=== PATIENT | female | born 1985 | race Two or more races ===

== ENCOUNTER 2024-05-31 21:07 | Emergency (ER) | payer OTHER ==
[~2024-05-31] VITALS: Ht 167.6 cm; Wt 79.4 kg
[~2024-05-31 21:07] MED LIST: Inderal 20 mg T20 MG PO
[2024-05-31 22:04] LABS: Source, Urine Clean Catch
[2024-05-31 22:08] LABS: Bilirubin, Urine Neg (Neg); Blood, Urine 2+ (Neg); Glucose Qualitative, Urine Neg (Neg); Ketones, Urine 1+ (Neg); Leukocyte Esterase, Urine 1+ (Neg); Nitrite, Urine Neg (Neg); Protein, Urine 2+ (Neg); Urobilinogen, Urine 1+ (Normal)
[2024-05-31 22:14] LABS: Appearance, Urine Hazy (Clear); Color, Urine Yellow (P-Yellow)
[2024-05-31 22:16] LABS: Amorphous Light (0-Heavy); Bacteria Mod /hpf; Calcium Oxalate Crystals Few /hpf; Squamous Epithelial Cells Mod /hpf (Few)
[2024-05-31] MEDS ORDERED: Doxycycline Hyclate 100 MG TAB PO ONE (23:00)
[2024-05-31] MEDS ORDERED: Vibramycin100 MG PO (23:01)
[2024-06-01 02:16] LABS: Candida Group, PCR NOT DETECTED (NOT DETECT); Candida glabrata-krusei, PCR NOT DETECTED (NOT DETECT)
[2024-06-01 02:54] LABS: Bacterial Vaginosis PCR Positive (NEGATIVE)
[2024-06-01 04:24] LABS: Chlamydia Trachomatis Cervix NOT DETECTED (NOT DETECT); Neisseria Gonorrhoea Cervix NOT DETECTED (NOT DETECT)
[2024-06-20] MEDS ORDERED: Diflucan150 MG PO (15:35)
[2024-06-20] MEDS ORDERED: PANT20 PO (15:35)
== END 2024-05-31 23:10 | disposition home or self-care (01) ==
LOC: ER 21:07
PROVIDERS: Emergency Medicine
DX: T19.2XXA Foreign body in vulva and vagina, initial encounter (principal); W44.8XXA Other foreign body entering into or through a natural orifice, initial encounter; I10 Essential (primary) hypertension; E03.9 Hypothyroidism, unspecified; Z79.899 Other long term (current) drug therapy
CPT/HCPCS: 81001; 81025; 87086; 87147; 87481; 87491; 87591; 87661; 87801; 99283; A9270

== ENCOUNTER → 2024-08-20 | Outpatient (CLI) | payer OTHER ==
[~2024-08-20] MED LIST changes: +Diflucan150 MG PO; +PANT20 PO; +Vibramycin100 MG PO
[2024-08-20 17:01] LABS: Appearance, Urine Turbid (Clear); Bilirubin, Urine Neg (Neg); Blood, Urine 5+ (Neg); Color, Urine Yellow (P-Yellow); Glucose Qualitative, Urine Neg (Neg); Ketones, Urine Neg (Neg); Leukocyte Esterase, Urine Neg (Neg); Nitrite, Urine Neg (Neg); Protein, Urine 1+ (Neg); Urobilinogen, Urine NORM (Normal)
[2024-08-20 17:16] LABS: Red Blood Cells, Urine 0-2 /hpf (0-2); White Blood Cells, Urine 0-2 /hpf (0-5)
[2024-08-20 17:17] LABS: Amorphous Mod (0-Heavy); Bacteria Many /hpf; Calcium Oxalate Crystals Few /hpf; Mucus Light (0-Heavy); Squamous Epithelial Cells Few /hpf (Few)
[2024-08-22 16:03] LABS: HIV 1,2 COMBO ANTIGEN/ANTIBODY Negative (Negative)
[2024-08-23 18:45] LABS: APTIMA MEDIA TYPE Urine; C. TRACHOMATIS BY TMA Negative (Negative); N. GONORRHOEAE BY TMA Negative (Negative); SPECIMEN SOURCE Urine
[2024-08-24 22:07] LABS: HCV GENOTYPE BY SEQUENCING Indeterminate
== END | disposition home or self-care (01) ==
LOC: LAB SHORT 13:45 → LAB 13:45
PROVIDERS: Nurse Practitioner Family
DX: Z72.51 High risk heterosexual behavior (principal)
CPT/HCPCS: 81001; 86592; 87086; 87389; 87491; 87591; 87902

== ENCOUNTER → 2024-08-30 | Outpatient (CLI) | payer OTHER ==
[2024-08-30 15:52] LABS: Bacterial Vaginosis PCR Positive (NEGATIVE); Candida Group, PCR NOT DETECTED (NOT DETECT); Candida glabrata-krusei, PCR NOT DETECTED (NOT DETECT)
== END ==
LOC: LAB SHORT 10:43 → LAB 10:43
PROVIDERS: Nurse Practitioner Family
DX: Z72.51 High risk heterosexual behavior (principal)
CPT/HCPCS: 87481; 87661; 87801

== ENCOUNTER 2024-12-17 16:36 | Emergency (ER) | payer OTHER ==
[~2024-12-17] VITALS: Ht 167.6 cm; Wt 83.9 kg
[~2024-12-17 16:36] MED LIST changes: -ERYT.5TO BOTHEYES; -Mupirocin22 GM TOP
[2024-12-17 17:23] LABS: BASOPHILS ABSOLUTE AUTO 0.05 K/mm3 (0.00-0.23); BASOPHILS PERCENT AUTO 1 % (0-2); EOSINOPHILS ABSOLUTE AUTO 0.47 K/mm3 (0.00-0.68); EOSINOPHILS PERCENT AUTO 6 % (0-6); Hematocrit 41.1 % (33.0-51.0); Hemoglobin 13.4 g/dL (11.5-16.0); IMMATURE GRAN ABSOLUTE AUTO 0.04 K/mm3 (0.00-0.10); IMMATURE GRAN PERCENT AUTO 1 % (0-1); LYMPHOCYTES ABSOLUTE AUTO 2.51 K/mm3 (0.84-5.20); LYMPHOCYTES PERCENT AUTO 31 % (21-46); MONOCYTES ABSOLUTE AUTO 0.58 K/mm3 (0.16-1.47); MONOCYTES PERCENT AUTO 7 % (4-13); Mean Corpuscular HGB 26.1 pg (26.0-34.0); Mean Corpuscular HGB Conc 32.6 g/dL (31.5-36.5); Mean Corpuscular Volume 80 fL (80-100); Mean Platelet Volume 9.1 fL (9.1-12.4); NEUTROPHILS ABSOLUTE AUTO 4.52 K/mm3 (1.96-9.15); NEUTROPHILS PERCENT AUTO 55 % (41-73); Platelet Count 286 K/mm3 (150-400); RDW Coefficient Variation 12.9 % (11.7-14.2); RDW Standard Deviation 37.8 fL (35.1-46.3); Red Blood Cell Count 5.13 M/mm3 (3.80-5.20); White Blood Cell Count 8.17 K/mm3 (4.00-11.30)
[2024-12-17 17:51] LABS: Free Thyroxine 1.56 ng/dL (0.70-1.60)
[2024-12-17 17:54] LABS: Albumin, Blood 3.5 g/dL (3.4-5.0); Bilirubin, Total 0.5 mg/dL (0.1-1.0); Bun/Creatinine Ratio 21.5 (12.0-20.0); Calcium, Blood 8.6 mg/dL (8.5-10.1); Creatinine, Blood 0.65 mg/dL (0.40-1.00); Globulin, Blood 3.5 g/dL (2.2-4.0); Potassium, Blood 3.7 mmol/L (3.5-5.5); Thyroid Stimulating Hormone 0.027 uIU/mL (0.360-4.800)
[2024-12-17 20:53] LABS: Triiodothyronine, Free 3.88 pg/mL (2.18-3.98)
== END 2024-12-17 20:53 | disposition home or self-care (01) ==
LOC: ER 16:36
PROVIDERS: Physician Assistant
DX: E05.91 Thyrotoxicosis, unspecified with thyrotoxic crisis or storm (principal); I10 Essential (primary) hypertension; F17.200 Nicotine dependence, unspecified, uncomplicated
CPT/HCPCS: 80053; 84439; 84443; 84481; 85025; 99284

== ENCOUNTER → 2024-12-17 | Outpatient (CLI) | payer OTHER ==
[~2024-12-17] MED LIST changes: +ERYT.5TO BOTHEYES; +Mupirocin22 GM TOP
== END | disposition home or self-care (01) ==
LOC: LAB SHORT 18:38 → LAB 18:38
DX: R41.82 Altered mental status, unspecified (principal)
CPT/HCPCS: 84443

== ENCOUNTER 2024-12-31 14:21 | Emergency (ER) | payer OTHER ==
[~2024-12-31] VITALS: Ht 167.6 cm; Wt 85.3 kg
[2024-12-31] MEDS ORDERED: Tetracaine HCl/Pf 0.5% Opth Soln 4 ml RIGHTEYE ONE (14:45)
[2024-12-31] MEDS ORDERED: Mupirocin22 GM TOP (14:51)
[2024-12-31] MEDS ORDERED: ERYT.5TO BOTHEYES (14:51)
== END 2024-12-31 15:20 | disposition home or self-care (01) ==
LOC: ER 14:21
DX: H10.011 Acute follicular conjunctivitis, right eye (principal); I10 Essential (primary) hypertension; F17.200 Nicotine dependence, unspecified, uncomplicated; Z79.899 Other long term (current) drug therapy
CPT/HCPCS: 99283

== ENCOUNTER 2025-01-29 14:49 | Emergency (ER) | payer OTHER ==
[~2025-01-29] VITALS: Ht 167.6 cm; Wt 85.3 kg
[~2025-01-29 14:49] MED LIST changes: +ERYT.5TO BOTHEYES; +Mupirocin22 GM TOP
[2025-01-29 16:06] LABS: CORONAVIRUS COVID-19 AG Negative (NEGATIVE); INFLUENZA A AG Negative (NEGATIVE); INFLUENZA B AG Negative (NEGATIVE)
== END 2025-01-29 16:35 | disposition home or self-care (01) ==
LOC: ER 14:49
PROVIDERS: Student in an Organized Health Care Education/Training Program
DX: J06.9 Acute upper respiratory infection, unspecified (principal); I10 Essential (primary) hypertension; E03.9 Hypothyroidism, unspecified; F41.9 Anxiety disorder, unspecified; F17.200 Nicotine dependence, unspecified, uncomplicated; Z79.899 Other long term (current) drug therapy
CPT/HCPCS: 87428-QW; 99283

== ENCOUNTER 2025-03-29 06:39 | Emergency (ER) | payer OTHER | END 2025-03-29 07:21 | disposition left against medical advice (07) | LOC: ER 06:39 | DX: M25.511 Pain in right shoulder (principal); Z53.21 Procedure and treatment not carried out due to patient leaving prior to being seen by health care provider ==

== ENCOUNTER 2025-07-28 01:02 | Day surgery (SDC) | payer OTHER ==
[2025-07-28 09:53] VITALS: BP 132/79
[2025-07-28] MEDS ORDERED: METHI10 PO (10:08)
== END 2025-07-28 10:25 | disposition home or self-care (01) ==
LOC: ATC 01:02
DX: E05.00 Thyrotoxicosis with diffuse goiter without thyrotoxic crisis or storm (principal); H57.89 Other specified disorders of eye and adnexa; F17.290 Nicotine dependence, other tobacco product, uncomplicated; Z79.899 Other long term (current) drug therapy
CPT/HCPCS: 96365; J2919

== ENCOUNTER 2025-08-04 00:12 | Day surgery (SDC) | payer OTHER ==
[~2025-08-04 00:12] MED LIST changes: +METHI10 PO
[2025-08-04 09:47] VITALS: BP 163/106
[2025-08-04] MEDS ORDERED: Solu-Medrol500 MG IV (09:54)
== END 2025-08-04 10:50 | disposition home or self-care (01) ==
LOC: ATC 00:12
DX: E05.00 Thyrotoxicosis with diffuse goiter without thyrotoxic crisis or storm (principal); H57.89 Other specified disorders of eye and adnexa; F17.200 Nicotine dependence, unspecified, uncomplicated; Z79.899 Other long term (current) drug therapy
CPT/HCPCS: 96365; J2919

== ENCOUNTER 2025-08-11 08:23 | Day surgery (SDC) | payer OTHER ==
[~2025-08-11 08:23] MED LIST changes: +Solu-Medrol500 MG IV
[2025-08-11 15:45] VITALS: BP 145/101
== END 2025-08-11 16:36 | disposition home or self-care (01) ==
LOC: ATC 08:23
DX: E05.00 Thyrotoxicosis with diffuse goiter without thyrotoxic crisis or storm (principal); F17.290 Nicotine dependence, other tobacco product, uncomplicated; Z79.899 Other long term (current) drug therapy
CPT/HCPCS: 96365; J2919

== ENCOUNTER 2025-08-18 01:27 | Day surgery (SDC) | payer OTHER ==
[2025-08-18 14:51] VITALS: BP 112/99
== END 2025-08-18 15:54 | disposition home or self-care (01) ==
LOC: ATC 01:27
DX: E05.00 Thyrotoxicosis with diffuse goiter without thyrotoxic crisis or storm (principal); H57.89 Other specified disorders of eye and adnexa; I10 Essential (primary) hypertension; E66.3 Overweight; Z68.29 Body mass index [BMI] 29.0-29.9, adult; F17.290 Nicotine dependence, other tobacco product, uncomplicated
CPT/HCPCS: 96365; J2919

== ENCOUNTER 2025-08-25 08:19 | Day surgery (SDC) | payer OTHER ==
[2025-08-25 15:16] VITALS: BP 161/85
== END 2025-08-25 15:45 | disposition home or self-care (01) ==
LOC: ATC 08:19
DX: E05.00 Thyrotoxicosis with diffuse goiter without thyrotoxic crisis or storm (principal); H57.89 Other specified disorders of eye and adnexa; F17.290 Nicotine dependence, other tobacco product, uncomplicated
CPT/HCPCS: 96365; J2919

== ENCOUNTER 2025-09-01 00:46 | Day surgery (SDC) | payer OTHER ==
[2025-09-01 09:50] VITALS: BP 142/87
== END 2025-09-01 10:32 | disposition home or self-care (01) ==
LOC: ATC 00:46
DX: E05.00 Thyrotoxicosis with diffuse goiter without thyrotoxic crisis or storm (principal); H57.89 Other specified disorders of eye and adnexa; F17.290 Nicotine dependence, other tobacco product, uncomplicated; Z79.899 Other long term (current) drug therapy
CPT/HCPCS: 96365; J2919

== ENCOUNTER 2025-09-08 01:14 | Day surgery (SDC) | payer OTHER ==
[2025-09-08 10:18] VITALS: BP 122/99
[2025-09-08 10:26] VITALS: BP 122/99
== END 2025-09-08 10:46 | disposition home or self-care (01) ==
LOC: ATC 01:14
DX: E05.00 Thyrotoxicosis with diffuse goiter without thyrotoxic crisis or storm (principal); Z87.891 Personal history of nicotine dependence; H57.89 Other specified disorders of eye and adnexa
CPT/HCPCS: 96365; J2919

== ENCOUNTER 2025-09-19 00:30 | Day surgery (SDC) | payer OTHER ==
--- NOTE | 2025-09-19 18:13 | NUR ---
CALLED PT TO DISCUSS PLAN FOR FUTURE APPTS. DUE TO DISRUPTIVE BEHAVIOR WITH A GUEST AND SECURITY BEING CALLED TO THE LOBBY, PT HAS BEEN ASKED TO ENTER THE BUILDING ALONE FOR FUTURE APPTS. PT AGREES TO PLAN AND EXPRESSES UNDERSTANDING.
== END 2025-09-19 12:24 | disposition home or self-care (01) ==
LOC: ATC 00:30
DX: E05.00 Thyrotoxicosis with diffuse goiter without thyrotoxic crisis or storm (principal); H57.89 Other specified disorders of eye and adnexa; F17.290 Nicotine dependence, other tobacco product, uncomplicated; Z79.899 Other long term (current) drug therapy
CPT/HCPCS: 96365; J2919

== ENCOUNTER 2025-09-25 00:33 | Day surgery (SDC) | payer OTHER ==
[2025-09-25 10:38] VITALS: BP 143/87
== END 2025-09-25 11:00 | disposition home or self-care (01) ==
LOC: ATC 00:33
DX: E05.00 Thyrotoxicosis with diffuse goiter without thyrotoxic crisis or storm (principal); H05.8 Other disorders of orbit
CPT/HCPCS: 96365; J2919

== ENCOUNTER 2025-10-02 00:16 | Day surgery (SDC) | payer OTHER ==
[2025-10-02 10:38] VITALS: BP 126/78
== END 2025-10-02 10:52 | disposition home or self-care (01) ==
LOC: ATC 00:16
DX: E05.00 Thyrotoxicosis with diffuse goiter without thyrotoxic crisis or storm (principal); H57.89 Other specified disorders of eye and adnexa; F17.290 Nicotine dependence, other tobacco product, uncomplicated; E66.3 Overweight; Z68.29 Body mass index [BMI] 29.0-29.9, adult
CPT/HCPCS: 96365; J2919

== ENCOUNTER 2025-10-09 02:33 | Day surgery (SDC) | payer OTHER ==
[2025-10-09] MEDS ORDERED: CEPH500 PO (10:27)
[2025-10-09] MEDS ORDERED: Norco 5-325 Ta1 EACH PO (10:27)
== END 2025-10-09 10:48 | disposition home or self-care (01) ==
LOC: ATC 02:33
DX: E05.00 Thyrotoxicosis with diffuse goiter without thyrotoxic crisis or storm (principal); H57.89 Other specified disorders of eye and adnexa; F17.290 Nicotine dependence, other tobacco product, uncomplicated
CPT/HCPCS: 96365; J2919

== ENCOUNTER 2025-10-16 04:33 | Day surgery (SDC) | payer OTHER ==
[~2025-10-16 04:33] MED LIST changes: +CEPH500 PO; +Norco 5-325 Ta1 EACH PO
[2025-10-16 10:20] VITALS: BP 154/89
== END 2025-10-16 11:12 | disposition home or self-care (01) ==
LOC: ATC 04:33
DX: E05.00 Thyrotoxicosis with diffuse goiter without thyrotoxic crisis or storm (principal); H57.89 Other specified disorders of eye and adnexa; Z87.891 Personal history of nicotine dependence
CPT/HCPCS: 96365; 99211; J2919

== ENCOUNTER → 2025-11-03 | Outpatient (CLI) | payer OTHER | LOC: LAB SHORT 15:30 → LAB 15:30 | DX: L02.31 Cutaneous abscess of buttock (principal) | CPT/HCPCS: 87070; 87075; 87205 ==